=== PATIENT | male | born 1940 | race African-American/Black ===

== ENCOUNTER 2022-07-01 11:15 | Inpatient (IN) ==
[2022-07-01] MEDS ORDERED: SODIUM CHLORIDE 0.9% 2,000 ML IV STA (11:32)
[2022-07-01 11:40] LABS: Basophils # 0.1 10*3/uL (0.0-0.2); Basophils % 0.4 % (0.0-0.8); Eosinophils % 0.1 % (0.00-10.9); Hemoglobin 12.7 GM/DL (14.0-18.0); Immature Granulocytes Absolute 0.47 #; Lymphocytes # 0.4 10*3/uL (1.4-4.0); Lymphocytes % 2.4 % (21.2-54.2); Mean Corpuscular HGB Conc 32.6 GM/DL (32-36); Mean Corpuscular Volume 90.5 FL (87-102); Mean Platelet Volume 11.4 FL (9.6-12.0); Monocytes # 0.7 10*3/uL (0.11-0.8); Monocytes % 4.4 % (1.7-12.7); Neutrophils % 89.7 % (38.7-73.9); Platelet Count 58 T/CUMM (130-400); Red Blood Count 4.31 MC/CUMM (3.8-5.5); Red Cell Distribution Width 14.6 % (9.3-17.3); White Blood Count 15.6 T/CUMM (4-12)
[2022-07-01 11:49] LABS: INR 1.7; PT Patient Result 17.7 SECS (10.1-12.1)
[2022-07-01 11:56] LABS: Amorphous Crystals,Urine Few /HPF (Few); Bilirubin,Urine Negative (Negative); Blood, Urine Large mg/dL (Negative); Glucose,Urine (UA) Negative (Negative); Ketones,Urine Negative (Negative); Nitrite,Urine Negative (Negative); Protein,Urine 100 mg/dL (Negative); RBC,Urine 92 /HPF (0-4); Squamous Epithelial Cell,Urine Occasional /HPF (0-10); Urine Appearance Slightly Cloudy (Clear); Urine Color Amber (Yellow); Urine Specific Gravity 1.015 (1.001-1.035); Urine Urobilinogen 0.2 eU/dL (<2.0); Urine pH 6.5 (4.5-8.0)
[2022-07-01 11:57] LABS: Albumin 2.5 G/DL (3.4-5.0); Bilirubin,Total 1.3 MG/DL (0.20-1.00); Calcium 8.9 MG/DL (8.5-10.1); Osmolality,Calculated 292.4 MOS/KG (273-304); Potassium 4.4 MMOL/L (3.5-5.1); Total Protein 5.7 G/DL (6.4-8.2)
[2022-07-01 12:00] LABS: Barbiturates Screen,Urine Negative (Negative); Benzodiazepines Screen,Urine Negative (Negative); Cannabinoid Screen,Urine Negative (Negative); Opiate Screen,Urine Negative (Negative); Phencyclidine Screen,Urine Negative (Negative)
[2022-07-01] MEDS ORDERED: NOREPINEPHRINE 4 MG/4 ML VIAL IV ONE (12:17)
[2022-07-01] MEDS: NOREPINEPHRINE DRIP 8 MG/250 ML PREMIX IV PRN (12:30)
[2022-07-01 12:35] LABS: Band Neutrophils 11 % (0-10); Lymphocytes 7 % (20-55); Total Cells Counted 100
[2022-07-01 12:37] LABS: Platelet Estimate Decreased
[2022-07-01] MEDS ORDERED: PIPERACILLIN/TAZOBACTAM 3,375 MG in SODIUM CHLORIDE 0.9% 100 ML IV STA (12:37)
[2022-07-01] MEDS ORDERED: VANCOMYCIN INJ 1,000 MG in SODIUM CHLORIDE 0.9% 250 ML IV STA (12:37)
[2022-07-01] MEDS ORDERED: SODIUM CHLORIDE 0.9% 1,000 ML IV STA (12:37)
[2022-07-01] MEDS ORDERED: ONDANSETRON 4 MG/2 ML VIAL IV PRN (13:13)
[2022-07-01] MEDS ORDERED: SODIUM BICARBONATE 50 MEQ/50 ML VIAL IV ONE (13:15)
[2022-07-01] MEDS ORDERED: SODIUM BICARB INJ 150 MEQ in DEXTROSE 5% 850 ML IV SCH (15:00)
[2022-07-01] MEDS: FAMOTIDINE 20 MG/2 ML VIAL IV SCH (15:21)
[2022-07-01] MEDS: HYDROCORTISONE 100 MG VIAL IV SCH ×2 (15:22→21:54)
[2022-07-01] MEDS: SODIUM BICARB INJ 150 MEQ in DEXTROSE 5% 1,000 ML IV SCH (15:30)
[2022-07-01] MEDS: MEROPENEM 500 MG in SODIUM CHLORIDE 0.9% 100 ML IV SCH (15:50)
[2022-07-01] MEDS ORDERED: LACTATED RINGERS 500 ML IV ONE ×2 (16:27→18:02)
[2022-07-01 19:11] LABS: Albumin 2.3 G/DL (3.4-5.0); Bilirubin,Total 1.2 MG/DL (0.20-1.00); Calcium 8.3 MG/DL (8.5-10.1); Osmolality,Calculated 295.4 MOS/KG (273-304); Total Protein 5.8 G/DL (6.4-8.2)
[2022-07-01] MEDS ORDERED: MAGNESIUM SULF RIDER 2 GM/50 ML PREMIX IV ONE (19:51)
[2022-07-02] MEDS: MEROPENEM 500 MG in SODIUM CHLORIDE 0.9% 100 ML IV SCH ×2 (01:32→13:41)
[2022-07-02] MEDS: SODIUM BICARB INJ 150 MEQ in DEXTROSE 5% 1,000 ML IV SCH ×3 (01:32→17:32)
[2022-07-02 05:03] LABS: Basophils # 0.2 10*3/uL (0.0-0.2); Basophils % 0.8 % (0.0-0.8); Hematocrit 34.8 VOL% (42.0-52.0); Hemoglobin 11.6 GM/DL (14.0-18.0); Immature Granulocytes % 0.8 %; Immature Granulocytes Absolute 0.18 #; Lymphocytes # 0.4 10*3/uL (1.4-4.0); Lymphocytes % 1.5 % (21.2-54.2); Mean Corpuscular HGB Conc 33.3 GM/DL (32-36); Mean Corpuscular Volume 89.9 FL (87-102); Monocytes % 4.2 % (1.7-12.7); Neutrophils % 92.7 % (38.7-73.9); Red Blood Count 3.87 MC/CUMM (3.8-5.5); Red Cell Distribution Width 14.8 % (9.3-17.3); White Blood Count 23.8 T/CUMM (4-12)
[2022-07-02 05:04] LABS: Platelet Count 37 T/CUMM (130-400)
[2022-07-02 05:19] LABS: Calcium 7.9 MG/DL (8.5-10.1); Osmolality,Calculated 297.3 MOS/KG (273-304); Potassium 4.3 MMOL/L (3.5-5.1); Total Protein 5.5 G/DL (6.4-8.2)
[2022-07-02 05:30] LABS: Band Neutrophils 4 % (0-10); Lymphocytes 3 % (20-55); Microcytosis Slight; Platelet Estimate Decreased; Total Cells Counted 100
[2022-07-02] MEDS: HYDROCORTISONE 100 MG VIAL IV SCH ×3 (06:03→22:50)
[2022-07-02] MEDS: NOREPINEPHRINE DRIP 8 MG/250 ML PREMIX IV PRN (09:01)
[2022-07-02] MEDS: FAMOTIDINE 20 MG/2 ML VIAL IV SCH (13:46)
[2022-07-03 01:11] LABS: Basophils % 0.2 % (0.0-0.8); Hemoglobin 11.2 GM/DL (14.0-18.0); Immature Granulocytes Absolute 0.63 #; Lymphocytes # 0.5 10*3/uL (1.4-4.0); Lymphocytes % 2.6 % (21.2-54.2); Mean Corpuscular HGB Conc 32.9 GM/DL (32-36); Mean Corpuscular Volume 89.9 FL (87-102); Mean Platelet Volume 12.7 FL (9.6-12.0); Monocytes % 4.9 % (1.7-12.7); Neutrophils % 89.3 % (38.7-73.9); Red Blood Count 3.78 MC/CUMM (3.8-5.5); Red Cell Distribution Width 14.5 % (9.3-17.3); White Blood Count 21.1 T/CUMM (4-12)
[2022-07-03 01:18] LABS: Platelet Count 34 T/CUMM (130-400)
[2022-07-03 01:29] LABS: Albumin 1.9 G/DL (3.4-5.0); Bilirubin,Total 0.8 MG/DL (0.20-1.00); Calcium 8.2 MG/DL (8.5-10.1); Osmolality,Calculated 287.8 MOS/KG (273-304); Potassium 3.6 MMOL/L (3.5-5.1); Total Protein 5.5 G/DL (6.4-8.2)
[2022-07-03 01:49] LABS: Lymphocytes 7 % (20-55); Platelet Estimate Decreased; Total Cells Counted 100
[2022-07-03] MEDS: SODIUM BICARB INJ 150 MEQ in DEXTROSE 5% 1,000 ML IV SCH ×3 (02:00→21:18)
[2022-07-03] MEDS: MEROPENEM 500 MG in SODIUM CHLORIDE 0.9% 100 ML IV SCH ×2 (02:37→14:49)
[2022-07-03] MEDS: HYDROCORTISONE 100 MG VIAL IV SCH ×3 (06:17→21:18)
[2022-07-03] MEDS: FAMOTIDINE 20 MG/2 ML VIAL IV SCH (14:49)
[2022-07-04] MEDS: MEROPENEM 500 MG in SODIUM CHLORIDE 0.9% 100 ML IV SCH ×2 (01:54→14:44)
[2022-07-04] MEDS: HYDROCORTISONE 100 MG VIAL IV SCH ×3 (05:49→21:34)
[2022-07-04 06:40] LABS: Basophils % 0.2 % (0.0-0.8); Immature Granulocytes % 0.6 %; Immature Granulocytes Absolute 0.09 #; Lymphocytes % 7.1 % (21.2-54.2); Mean Corpuscular HGB Conc 32.4 GM/DL (32-36); Mean Corpuscular Volume 90.5 FL (87-102); Mean Platelet Volume 13.2 FL (9.6-12.0); Monocytes # 1.1 10*3/uL (0.11-0.8); Monocytes % 7.6 % (1.7-12.7); Neutrophils % 84.5 % (38.7-73.9); Red Blood Count 4.09 MC/CUMM (3.8-5.5); Red Cell Distribution Width 14.6 % (9.3-17.3); White Blood Count 14.1 T/CUMM (4-12)
[2022-07-04 06:45] LABS: Platelet Count 30 T/CUMM (130-400)
[2022-07-04] MEDS: SODIUM BICARB INJ 150 MEQ in DEXTROSE 5% 1,000 ML IV SCH ×3 (06:48→23:43)
[2022-07-04 06:53] LABS: Calcium 8.5 MG/DL (8.5-10.1); Potassium 2.9 MMOL/L (3.5-5.1)
[2022-07-04 07:11] LABS: Anisocytosis Slight; Band Neutrophils 8 % (0-10); Lymphocytes 7 % (20-55); Macrocytosis 1+; Platelet Estimate Decreased; Total Cells Counted 100
[2022-07-04] MEDS ORDERED: POTASSIUM CHLORIDE 20 MEQ TABLET PO ONE (10:43)
[2022-07-04] MEDS: cefTRIAXone 1,000 MG in SODIUM CHLORIDE 0.9% 100 ML IV SCH (14:44)
[2022-07-04] MEDS: FAMOTIDINE 20 MG/2 ML VIAL IV SCH (14:44)
[2022-07-05] MEDS: MEROPENEM 500 MG in SODIUM CHLORIDE 0.9% 100 ML IV SCH (02:24)
[2022-07-05] MEDS: HYDROCORTISONE 100 MG VIAL IV SCH (05:05)
[2022-07-05 06:22] LABS: Basophils % 0.2 % (0.0-0.8); Hematocrit 34.7 VOL% (42.0-52.0); Hemoglobin 11.6 GM/DL (14.0-18.0); Immature Granulocytes % 1.6 %; Lymphocytes # 0.8 10*3/uL (1.4-4.0); Lymphocytes % 6.2 % (21.2-54.2); Mean Corpuscular HGB Conc 33.4 GM/DL (32-36); Mean Corpuscular Volume 89.4 FL (87-102); Mean Platelet Volume 13.1 FL (9.6-12.0); Monocytes # 1.7 10*3/uL (0.11-0.8); Monocytes % 13.7 % (1.7-12.7); Neutrophils % 78.3 % (38.7-73.9); Red Blood Count 3.88 MC/CUMM (3.8-5.5); Red Cell Distribution Width 14.6 % (9.3-17.3); White Blood Count 12.4 T/CUMM (4-12)
[2022-07-05 06:23] LABS: Platelet Count 34 T/CUMM (130-400)
[2022-07-05 06:39] LABS: Platelet Estimate Decreased
[2022-07-05 06:39] LABS: Albumin 1.6 G/DL (3.4-5.0); Calcium 8.3 MG/DL (8.5-10.1); Osmolality,Calculated 287.7 MOS/KG (273-304); Potassium 2.6 MMOL/L (3.5-5.1); Total Protein 5.1 G/DL (6.4-8.2)
[2022-07-05 06:58] LABS: % Iron Saturation 5.1 % (18-50); Ferritin 408.1 ng/mL (26-388)
[2022-07-05 07:00] LABS: Folate 4.36 NG/ML (5.38-24.0)
[2022-07-05 07:15] LABS: Hepatitis B Core IgM Quant 0.06 Index; Hepatitis B Surface Ag Quant < 0.10 Index; Hepatitis B Surface Ag Result Non-Reactive (NonReactive); Hepatitis C Virus Ab Quant 0.04 Index; Hepatitis C Virus Ab Result Non-Reactive (NonReactive)
[2022-07-05] MEDS: SODIUM BICARB INJ 150 MEQ in DEXTROSE 5% 1,000 ML IV SCH (08:04)
[2022-07-05] MEDS: FAMOTIDINE 20 MG TABLET PO SCH ×2 (09:17→20:44)
[2022-07-05] MEDS: POTASSIUM CHLORIDE 20 MEQ TABLET PO SCH ×3 (09:17→20:45)
[2022-07-05] MEDS: FLUoxetine 20 MG CAPSULE PO SCH (09:18)
[2022-07-05] MEDS: TAMSULOSIN 0.4 MG CAPSULE PO SCH (09:18)
[2022-07-05] MEDS: cefTRIAXone 1,000 MG in SODIUM CHLORIDE 0.9% 100 ML IV SCH (14:16)
[2022-07-05] MEDS: SIMVASTATIN 10 MG TABLET PO SCH (20:45)
[2022-07-05] MEDS ORDERED: RIVAROXABAN 15 MG TABLET PO SCH (21:00)
[2022-07-06 05:38] LABS: Basophils % 0.2 % (0.0-0.8); Eosinophils % 0.1 % (0.00-10.9); Hematocrit 38.7 VOL% (42.0-52.0); Hemoglobin 12.5 GM/DL (14.0-18.0); Immature Granulocytes % 1.3 %; Immature Granulocytes Absolute 0.23 #; Lymphocytes # 1.3 10*3/uL (1.4-4.0); Lymphocytes % 7.2 % (21.2-54.2); Mean Corpuscular HGB Conc 32.3 GM/DL (32-36); Mean Corpuscular Volume 91.3 FL (87-102); Mean Platelet Volume 12.4 FL (9.6-12.0); Monocytes # 1.8 10*3/uL (0.11-0.8); Neutrophils % 81.2 % (38.7-73.9); Platelet Count 50 T/CUMM (130-400); Red Blood Count 4.24 MC/CUMM (3.8-5.5)
[2022-07-06 05:57] LABS: Calcium 8.9 MG/DL (8.5-10.1); Osmolality,Calculated 287.5 MOS/KG (273-304); Potassium 3.1 MMOL/L (3.5-5.1)
[2022-07-06 06:01] LABS: Albumin 1.8 G/DL (3.4-5.0); Calcium 8.7 MG/DL (8.5-10.1); Osmolality,Calculated 288.5 MOS/KG (273-304); Phosphorous 2.8 MG/DL (2.5-4.9); Potassium 3.4 MMOL/L (3.5-5.1)
[2022-07-06 06:04] LABS: Platelet Estimate Decreased
[2022-07-06] MEDS: TAMSULOSIN 0.4 MG CAPSULE PO SCH (09:07)
[2022-07-06] MEDS: FAMOTIDINE 20 MG TABLET PO SCH ×2 (09:07→20:38)
[2022-07-06] MEDS: FLUoxetine 20 MG CAPSULE PO SCH (09:07)
[2022-07-06] MEDS: cefTRIAXone 1,000 MG in SODIUM CHLORIDE 0.9% 100 ML IV SCH (15:07)
[2022-07-06] MEDS: SIMVASTATIN 10 MG TABLET PO SCH (20:38)
[2022-07-06] MEDS ORDERED: POTASSIUM CHLORIDE 20 MEQ TABLET PO SCH (21:00)
[2022-07-07 06:15] LABS: Basophils % 0.2 % (0.0-0.8); Hematocrit 36.9 VOL% (42.0-52.0); Hemoglobin 12.4 GM/DL (14.0-18.0); Immature Granulocytes % 4.4 %; Immature Granulocytes Absolute 0.94 #; Lymphocytes # 0.8 10*3/uL (1.4-4.0); Lymphocytes % 3.7 % (21.2-54.2); Mean Corpuscular HGB Conc 33.6 GM/DL (32-36); Mean Corpuscular Volume 88.9 FL (87-102); Monocytes # 1.6 10*3/uL (0.11-0.8); Monocytes % 7.4 % (1.7-12.7); Neutrophils % 84.3 % (38.7-73.9); Platelet Count 74 T/CUMM (130-400); Red Blood Count 4.15 MC/CUMM (3.8-5.5); Red Cell Distribution Width 15.1 % (9.3-17.3); White Blood Count 21.6 T/CUMM (4-12)
[2022-07-07 06:19] LABS: Calcium 9.1 MG/DL (8.5-10.1); Osmolality,Calculated 286.7 MOS/KG (273-304); Potassium 2.8 MMOL/L (3.5-5.1)
[2022-07-07 06:38] LABS: Hypochromia Slight; Lymphocytes 6 % (20-55); Microcytosis Slight; Platelet Estimate Decreased; Total Cells Counted 100
[2022-07-07] MEDS ORDERED: SODIUM CHLOR 0.9% KCL 20 MEQ 20 MEQ/1,000 ML BAG IV SCH (09:00)
[2022-07-07] MEDS: FLUoxetine 20 MG CAPSULE PO SCH (10:10)
[2022-07-07] MEDS: FAMOTIDINE 20 MG TABLET PO SCH (10:10)
[2022-07-07] MEDS: TAMSULOSIN 0.4 MG CAPSULE PO SCH (10:10)
[2022-07-07] MEDS: POTASSIUM CHLORIDE 20 MEQ TABLET PO SCH ×2 (10:11→16:14)
[2022-07-07] MEDS: cefTRIAXone 1,000 MG in SODIUM CHLORIDE 0.9% 100 ML IV SCH (10:17)
[2022-07-07 13:13] VITALS: BP 123/54
== END 2022-07-07 17:13 | DRG 871 ==
LOC: N.ED 11:15 → SUATTDRO 13:13 → N.EDINP 13:13 → N.ICU 14:20 → N.5E 07-03 16:16 → N.2E 07-06 11:29
PROVIDERS: ADMIT Family Medicine; ATTEND Internal Medicine Geriatric Medicine

== ENCOUNTER 2022-08-16 09:56 | Inpatient (IN) ==
[2022-08-16] MEDS ORDERED: SODIUM CHLORIDE 0.9% 500 ML IV STA (10:06)
[2022-08-16] MEDS ORDERED: SODIUM CHLORIDE 0.9% 3,550 ML IV ONE (10:37)
[2022-08-16] MEDS ORDERED: methylPREDNISolone SOD SUC 125 MG/2 ML VIAL IV STA (10:40)
[2022-08-16 10:51] LABS: Eosinophils # 0.1 10*3/uL (0.0-0.87); Eosinophils % 1.2 % (0.00-10.9); Hematocrit 25.5 VOL% (42.0-52.0); Hemoglobin 7.5 GM/DL (14.0-18.0); Immature Granulocytes % 0.5 %; Immature Granulocytes Absolute 0.04 #; Mean Corpuscular HGB Conc 29.4 GM/DL (32-36); Mean Corpuscular Volume 93.8 FL (87-102); Mean Platelet Volume 9.8 FL (9.6-12.0); Monocytes # 0.8 10*3/uL (0.11-0.8); NRBC # 0.02 10*3/uL; Neutrophils % 73.3 % (38.7-73.9); Platelet Count 145 T/CUMM (130-400); Red Blood Count 2.72 MC/CUMM (3.8-5.5); Red Cell Distribution Width 16.2 % (9.3-17.3); White Blood Count 7.4 T/CUMM (4-12)
[2022-08-16 10:52] LABS: Arterial Base Excess iSTAT 2 MMOL/L (-2.5-2.5); Arterial Bicarbonate iSTAT 26.2 MMOL/L (20-26); Arterial O2 Saturation iSTAT 97 % (95-100); Arterial PCO2 iSTAT 39 MM HG (35-48); Arterial PO2 iSTAT 83 MM HG (80-95); Arterial Total CO2 iSTAT 27 MMO/L (23-27); Arterial pH iSTAT 7.437 (7.35-7.45)
[2022-08-16 11:01] LABS: INR 1.1; PT Patient Result 12.3 SECS (10.1-12.1); Partial Thromboplastin Time 26.6 SECS (23.7-32.9)
[2022-08-16 11:08] LABS: Albumin 1.9 G/DL (3.4-5.0); Bilirubin,Total 0.8 MG/DL (0.20-1.00); Calcium 8.9 MG/DL (8.5-10.1); Osmolality,Calculated 294.4 MOS/KG (273-304); Potassium 4.3 MMOL/L (3.5-5.1); Total Protein 6.1 G/DL (6.4-8.2)
[2022-08-16] MEDS: PIPERACILLIN/TAZOBACTAM 3,375 MG in SODIUM CHLORIDE 0.9% 100 ML IV SCH ×2 (11:26→20:55)
[2022-08-16 11:31] LABS: Mucus,Urine Occasional /LPF (Occasional); RBC,Urine 5 /HPF (0-4)
[2022-08-16 11:32] LABS: Bilirubin,Urine Negative (Negative); Blood, Urine Moderate mg/dL (Negative); Glucose,Urine (UA) Negative (Negative); Ketones,Urine Negative (Negative); Nitrite,Urine Negative (Negative); Protein,Urine 30 mg/dL (Negative); Urine Appearance Clear (Clear); Urine Color Yellow (Yellow); Urine Specific Gravity 1.015 (1.001-1.035)
[2022-08-16] MEDS ORDERED: DOCUSATE SODIUM 100 MG CAPSULE PO PRN (11:58)
[2022-08-16] MEDS ORDERED: ACETAMINOPHEN 325 MG TABLET PO PRN (11:58)
[2022-08-16 12:00] LABS: Barbiturates Screen,Urine Negative (Negative); Benzodiazepines Screen,Urine Negative (Negative); Cannabinoid Screen,Urine Negative (Negative); Opiate Screen,Urine Negative (Negative); Phencyclidine Screen,Urine Negative (Negative)
[2022-08-16] MEDS ORDERED: ENOXAPARIN 40 MG/0.4 ML SYRINGE SUBCUT SCH (12:00)
[2022-08-16] MEDS ORDERED: VANCOMYCIN INJ 1,000 MG in SODIUM CHLORIDE 0.9% 250 ML IV SCH (13:00)
[2022-08-16] MEDS: ENOXAPARIN 120 MG/0.8 ML SYRINGE SUBCUT SCH (13:51)
[2022-08-16 13:53] LABS: Ferritin 362.9 ng/mL (26-388)
[2022-08-16] MEDS ORDERED: REMDESIVIR 200 MG in SODIUM CHLORIDE 0.9% 210 ML IV ONE (14:00)
[2022-08-16] MEDS ORDERED: SODIUM CHLORIDE 0.9% 1,000 ML IV PRN (15:16)
[2022-08-16] MEDS: VANCOMYCIN INJ 1,500 MG in SODIUM CHLORIDE 0.9% 500 ML IV SCH (16:20)
[2022-08-16] MEDS: FUROSEMIDE 40 MG/4 ML VIAL IV SCH (16:37)
[2022-08-16] MEDS: AZITHROMYCIN INJ 500 MG in SODIUM CHLORIDE 0.9% 250 ML IV SCH (18:10)
[2022-08-16 18:13] LABS: Folate 7.09 NG/ML (5.38-24.0)
[2022-08-16] MEDS: GABAPENTIN 100 MG CAPSULE PO SCH (22:04)
[2022-08-16] MEDS: ASCORBIC ACID 500 MG TABLET PO SCH (22:04)
[2022-08-16] MEDS: MIRTAZAPINE 15 MG TABLET PO SCH (22:04)
[2022-08-17] MEDS: VANCOMYCIN INJ 1,500 MG in SODIUM CHLORIDE 0.9% 500 ML IV SCH ×2 (01:22→15:08)
[2022-08-17] MEDS: PIPERACILLIN/TAZOBACTAM 3,375 MG in SODIUM CHLORIDE 0.9% 100 ML IV SCH ×3 (04:23→21:18)
[2022-08-17 07:53] LABS: Hematocrit 34.9 VOL% (42.0-52.0); Hemoglobin 10.2 GM/DL (14.0-18.0); Immature Granulocytes % 1.1 %; Immature Granulocytes Absolute 0.09 #; Lymphocytes # 1.1 10*3/uL (1.4-4.0); Lymphocytes % 13.2 % (21.2-54.2); Mean Corpuscular HGB Conc 29.2 GM/DL (32-36); Mean Corpuscular Volume 94.3 FL (87-102); Mean Platelet Volume 9.5 FL (9.6-12.0); Monocytes # 0.7 10*3/uL (0.11-0.8); Monocytes % 8.2 % (1.7-12.7); NRBC # 0.02 10*3/uL; Neutrophils % 77.5 % (38.7-73.9); Platelet Count 158 T/CUMM (130-400); Red Cell Distribution Width 16.2 % (9.3-17.3)
[2022-08-17 07:58] LABS: Calcium 8.9 MG/DL (8.5-10.1); Osmolality,Calculated 295.4 MOS/KG (273-304); Potassium 4.8 MMOL/L (3.5-5.1)
[2022-08-17 08:29] LABS: Cholesterol < 50 MG/DL (50-200); HDL Cholesterol 25 MG/DL (40-60); Triglycerides 56 MG/DL (2-150); VLDL Cholesterol 11.2 MG/DL
[2022-08-17] MEDS: DEXAMETHASONE 4 MG/1 ML VIAL IV SCH (09:47)
[2022-08-17] MEDS: REMDESIVIR 100 MG in SODIUM CHLORIDE 0.9% 100 ML IV SCH (09:47)
[2022-08-17] MEDS: FERROUS SULFATE 325 MG TABLET PO SCH ×2 (09:48→21:17)
[2022-08-17] MEDS: CETIRIZINE 10 MG TABLET PO SCH (09:48)
[2022-08-17] MEDS: ASCORBIC ACID 500 MG TABLET PO SCH ×2 (09:48→21:18)
[2022-08-17] MEDS: TAMSULOSIN 0.4 MG CAPSULE PO SCH (09:48)
[2022-08-17] MEDS: GABAPENTIN 100 MG CAPSULE PO SCH ×2 (09:48→21:18)
[2022-08-17] MEDS: FUROSEMIDE 40 MG/4 ML VIAL IV SCH ×2 (09:48→15:34)
[2022-08-17] MEDS: ZINC GLUCONATE 50 MG TABLET PO SCH (09:48)
[2022-08-17] MEDS: DULoxetine 30 MG CAPSULE PO SCH (09:48)
[2022-08-17] MEDS: PANTOPRAZOLE 40 MG TABLET PO SCH (09:48)
[2022-08-17] MEDS: CHOLECALCIFEROL 1,000 UNIT TABLET PO SCH (09:49)
[2022-08-17] MEDS: FERRIC GLUCONATE COMPLEX 125 MG in SODIUM CHLORIDE 0.9% 100 ML IV SCH (11:48)
[2022-08-17] MEDS: ENOXAPARIN 120 MG/0.8 ML SYRINGE SUBCUT SCH (12:32)
[2022-08-17] MEDS: AZITHROMYCIN INJ 500 MG in SODIUM CHLORIDE 0.9% 250 ML IV SCH (12:32)
[2022-08-17] MEDS: MENTHOL/ZINC OXIDE OINT 71 GM JAR TOP SCH (21:18)
[2022-08-17] MEDS: MIRTAZAPINE 15 MG TABLET PO SCH (21:18)
[2022-08-18] MEDS: VANCOMYCIN INJ 1,500 MG in SODIUM CHLORIDE 0.9% 500 ML IV SCH (03:27)
[2022-08-18 05:46] LABS: Basophils % 0.1 % (0.0-0.8); Hemoglobin 10.4 GM/DL (14.0-18.0); Immature Granulocytes % 0.5 %; Immature Granulocytes Absolute 0.05 #; Lymphocytes # 1.7 10*3/uL (1.4-4.0); Lymphocytes % 17.6 % (21.2-54.2); Mean Corpuscular HGB Conc 29.7 GM/DL (32-36); Mean Corpuscular Volume 91.9 FL (87-102); Mean Platelet Volume 9.7 FL (9.6-12.0); Monocytes # 0.9 10*3/uL (0.11-0.8); Monocytes % 9.6 % (1.7-12.7); NRBC # 0.02 10*3/uL; Neutrophils % 72.2 % (38.7-73.9); Platelet Count 179 T/CUMM (130-400); Red Blood Count 3.81 MC/CUMM (3.8-5.5); Red Cell Distribution Width 16.4 % (9.3-17.3); White Blood Count 9.5 T/CUMM (4-12)
[2022-08-18] MEDS: PIPERACILLIN/TAZOBACTAM 3,375 MG in SODIUM CHLORIDE 0.9% 100 ML IV SCH ×3 (06:06→20:21)
[2022-08-18 06:14] LABS: Calcium 8.6 MG/DL (8.5-10.1); Osmolality,Calculated 304.9 MOS/KG (273-304); Potassium 4.2 MMOL/L (3.5-5.1)
[2022-08-18 06:15] LABS: Ferritin 504.5 ng/mL (26-388)
[2022-08-18] MEDS: DULoxetine 30 MG CAPSULE PO SCH (09:49)
[2022-08-18] MEDS: ASCORBIC ACID 500 MG TABLET PO SCH ×2 (09:49→20:20)
[2022-08-18] MEDS: CHOLECALCIFEROL 1,000 UNIT TABLET PO SCH (09:50)
[2022-08-18] MEDS: TAMSULOSIN 0.4 MG CAPSULE PO SCH (09:50)
[2022-08-18] MEDS: ZINC GLUCONATE 50 MG TABLET PO SCH (09:50)
[2022-08-18] MEDS: CETIRIZINE 10 MG TABLET PO SCH (09:50)
[2022-08-18] MEDS: PANTOPRAZOLE 40 MG TABLET PO SCH (09:50)
[2022-08-18] MEDS: FERROUS SULFATE 325 MG TABLET PO SCH ×2 (09:50→20:20)
[2022-08-18] MEDS: GABAPENTIN 100 MG CAPSULE PO SCH ×2 (09:50→20:20)
[2022-08-18] MEDS: DEXAMETHASONE 4 MG/1 ML VIAL IV SCH (09:50)
[2022-08-18] MEDS: FERRIC GLUCONATE COMPLEX 125 MG in SODIUM CHLORIDE 0.9% 100 ML IV SCH (09:51)
[2022-08-18] MEDS: FUROSEMIDE 40 MG/4 ML VIAL IV SCH ×2 (09:51→16:48)
[2022-08-18] MEDS: REMDESIVIR 100 MG in SODIUM CHLORIDE 0.9% 100 ML IV SCH (09:51)
[2022-08-18] MEDS: MENTHOL/ZINC OXIDE OINT 71 GM JAR TOP SCH ×2 (09:52→20:42)
[2022-08-18] MEDS: ENOXAPARIN 120 MG/0.8 ML SYRINGE SUBCUT SCH (13:48)
[2022-08-18] MEDS: AZITHROMYCIN INJ 500 MG in SODIUM CHLORIDE 0.9% 250 ML IV SCH (13:49)
[2022-08-18] MEDS: MIRTAZAPINE 15 MG TABLET PO SCH (20:20)
[2022-08-19] MEDS: PIPERACILLIN/TAZOBACTAM 3,375 MG in SODIUM CHLORIDE 0.9% 100 ML IV SCH (04:30)
[2022-08-19 05:39] LABS: Basophils % 0.1 % (0.0-0.8); Eosinophils % 0.1 % (0.00-10.9); Hematocrit 31.1 VOL% (42.0-52.0); Hemoglobin 9.4 GM/DL (14.0-18.0); Immature Granulocytes % 0.6 %; Immature Granulocytes Absolute 0.05 #; Lymphocytes # 1.4 10*3/uL (1.4-4.0); Lymphocytes % 16.7 % (21.2-54.2); Mean Corpuscular HGB Conc 30.2 GM/DL (32-36); Mean Corpuscular Volume 91.2 FL (87-102); Mean Platelet Volume 9.7 FL (9.6-12.0); Monocytes # 0.9 10*3/uL (0.11-0.8); Monocytes % 11.3 % (1.7-12.7); Neutrophils % 71.2 % (38.7-73.9); Platelet Count 162 T/CUMM (130-400); Red Blood Count 3.41 MC/CUMM (3.8-5.5); Red Cell Distribution Width 16.2 % (9.3-17.3); White Blood Count 8.2 T/CUMM (4-12)
[2022-08-19 05:57] LABS: Calcium 8.4 MG/DL (8.5-10.1); Osmolality,Calculated 296.3 MOS/KG (273-304); Potassium 3.5 MMOL/L (3.5-5.1)
[2022-08-19 05:58] LABS: Calcium 8.3 MG/DL (8.5-10.1); Osmolality,Calculated 295.4 MOS/KG (273-304); Potassium 3.6 MMOL/L (3.5-5.1)
[2022-08-19] MEDS: FUROSEMIDE 40 MG/4 ML VIAL IV SCH (09:28)
[2022-08-19] MEDS: MENTHOL/ZINC OXIDE OINT 71 GM JAR TOP SCH ×2 (09:29→20:49)
[2022-08-19] MEDS: DEXAMETHASONE 4 MG/1 ML VIAL IV SCH (09:29)
[2022-08-19] MEDS: ZINC GLUCONATE 50 MG TABLET PO SCH (09:29)
[2022-08-19] MEDS: TAMSULOSIN 0.4 MG CAPSULE PO SCH (09:30)
[2022-08-19] MEDS: FERROUS SULFATE 325 MG TABLET PO SCH ×2 (09:30→20:49)
[2022-08-19] MEDS: DULoxetine 30 MG CAPSULE PO SCH (09:30)
[2022-08-19] MEDS: ASCORBIC ACID 500 MG TABLET PO SCH ×2 (09:30→20:49)
[2022-08-19] MEDS: PANTOPRAZOLE 40 MG TABLET PO SCH (09:30)
[2022-08-19] MEDS: CHOLECALCIFEROL 1,000 UNIT TABLET PO SCH (09:30)
[2022-08-19] MEDS: GABAPENTIN 100 MG CAPSULE PO SCH ×2 (09:30→20:49)
[2022-08-19] MEDS: REMDESIVIR 100 MG in SODIUM CHLORIDE 0.9% 100 ML IV SCH (09:31)
[2022-08-19] MEDS: FERRIC GLUCONATE COMPLEX 125 MG in SODIUM CHLORIDE 0.9% 100 ML IV SCH (09:31)
[2022-08-19] MEDS: AZITHROMYCIN INJ 500 MG in SODIUM CHLORIDE 0.9% 250 ML IV SCH (09:31)
[2022-08-19] MEDS: CETIRIZINE 10 MG TABLET PO SCH (09:56)
[2022-08-19] MEDS: MIRTAZAPINE 15 MG TABLET PO SCH (20:49)
[2022-08-19] MEDS: ENOXAPARIN 120 MG/0.8 ML SYRINGE SUBCUT SCH (20:52)
[2022-08-20] MEDS: MENTHOL/ZINC OXIDE OINT 71 GM JAR TOP SCH (09:31)
[2022-08-20] MEDS: REMDESIVIR 100 MG in SODIUM CHLORIDE 0.9% 100 ML IV SCH (09:31)
[2022-08-20] MEDS: DEXAMETHASONE 4 MG/1 ML VIAL IV SCH (09:32)
[2022-08-20] MEDS: DULoxetine 30 MG CAPSULE PO SCH (09:34)
[2022-08-20] MEDS: GABAPENTIN 100 MG CAPSULE PO SCH (09:34)
[2022-08-20] MEDS: CHOLECALCIFEROL 1,000 UNIT TABLET PO SCH (09:34)
[2022-08-20] MEDS: CETIRIZINE 10 MG TABLET PO SCH (09:34)
[2022-08-20] MEDS: TAMSULOSIN 0.4 MG CAPSULE PO SCH (09:34)
[2022-08-20] MEDS: ZINC GLUCONATE 50 MG TABLET PO SCH (09:34)
[2022-08-20] MEDS: ASCORBIC ACID 500 MG TABLET PO SCH (09:34)
[2022-08-20] MEDS: FERROUS SULFATE 325 MG TABLET PO SCH (09:35)
[2022-08-20] MEDS: PANTOPRAZOLE 40 MG TABLET PO SCH (09:35)
[2022-08-20] MEDS: AZITHROMYCIN INJ 500 MG in SODIUM CHLORIDE 0.9% 250 ML IV SCH (10:39)
[2022-08-20 11:14] VITALS: BP 128/71
[2022-08-20] MEDS: FERRIC GLUCONATE COMPLEX 125 MG in SODIUM CHLORIDE 0.9% 100 ML IV SCH (11:54)
[2022-08-20] MEDS ORDERED: cefTRIAXone 1,000 MG in SODIUM CHLORIDE 0.9% 100 ML IV SCH (13:00)
== END 2022-08-20 15:00 | DRG 871 ==
LOC: N.ED 09:56 → N.EDINP 11:59 → SUATTDRO 11:59 → N.2E 18:17
PROVIDERS: ADMIT Internal Medicine; ATTEND Hospitalist